=== PATIENT | female | born 1950 | race African-American/Black ===

== ENCOUNTER 2016-11-11 19:01 | Observation (INO) | payer MEDICARE, BC ==
[2016-11-11] MEDS ORDERED: SODIUM CHLORIDE 0.9% 1,000 ML IV STA (19:30)
[2016-11-11] MEDS ORDERED: KETOROLAC 30 MG/ML 1 ML VIAL IVP STA (19:33)
[2016-11-11] MEDS ORDERED: ORPHENADRINE 30 MG/ML 2 ML VIAL IVP STA (19:33)
--- NOTE | 2016-11-11 19:42 | ED ---
Back Pain HPI - General Chief Complaint: Back Pain/Injury Stated Complaint: back pain Time Seen by Provider: 11/11/16 19:16 Source: patient, RN notes reviewed, old records reviewed Limitations: no limitations - History of Present Illness Initial Comments: Patient is a 66-year-old female with chief complaint of lower back pain for approximately few hours and then the same time of the back pain occurred she did have some left arm pain and numbness. She states that her pain is in her arms sore and difficulty lifting up her arm. Patient reports that she does have a history of heart disease and family history of sudden cardiac . Patient reports that she has received a stress test approximately a year ago and states that it was clear. She states that she has no chest pain or shortness of breath this time. She reports that she is not in any pain except for when she has to move. She denies any dysuria, hematuria or abdominal pain. Patient is extremely concerned that her arteries may be clogged. - Related Data Home Medications Medication Instructions Recorded Confirmed Carvedilol [Carvedilol] 6.25 mg PO BID 01/25/14 11/11/16 Levothyroxine Sodium 75 mcg PO DAILY 01/25/14 11/11/16 [Levothyroxine Sodium] Atorvastatin [Lipitor] 10 mg PO HS 12/29/15 11/11/16 Lisinopril [Zestril] 10 mg PO HS 12/29/15 11/11/16 Calcium Carbonate/Vitamin D3 1 tab PO DAILY 08/02/16 11/11/16 [Calcium 600-Vit D3 400 Caplet] Cholecalciferol [Vitamin D3] 1,000 unit PO DAILY 08/02/16 11/11/16 Multivitamin [Multivitamins Adult 1 tab PO DAILY 08/02/16 11/11/16 Gummies] Topiramate [Topamax] 50 mg PO QAM 11/11/16 11/11/16 Allergies Allergy/AdvReac Type Severity Reaction Status Date / Time No Known Allergies Allergy Verified 11/11/16 20:03 Review of Systems ROS Statement: Those systems with pertinent positive or pertinent negative responses have been documented in the HPI. ROS Other: All systems not noted in ROS Statement are negative. Past Medical History Past Medical History: Hyperlipidemia, Hypertension, Thyroid Disorder Additional Past Medical History / Comment(s): cardiomyopathy, only has 1 kidney , hiatal hernia, plate in left wrist, degenerative disc disease, bone spurs. History of Any Multi-Drug Resistant Organisms: None Reported Past Surgical History: Appendectomy, Section Additional Past Surgical History / Comment(s): salpingo-oophorectomy 1 side, uterine sugery, left wrist surgery. Past Anesthesia/Blood Transfusion Reactions: Motion Sickness Past Psychological History: No Psychological Hx Reported Smoking Status: Former smoker Past Alcohol Use History: None Reported Past Drug Use History: None Reported - Past Family History Mother Family Medical History: Cancer General Exam - General Exam Comments Initial Comments: Patient is a 66-year-old female. She does not appear to be in any acute distress. Patient is resting comfortably on the bed. Limitations: no limitations General appearance: alert, in no apparent distress Head exam: Present: atraumatic, normocephalic, normal inspection Eye exam: Present: normal appearance, PERRL, EOMI. Absent: scleral icterus, conjunctival injection, periorbital swelling ENT exam: Present: normal exam, mucous membranes moist Neck exam: Present: normal inspection. Absent: tenderness, meningismus, lymphadenopathy Respiratory exam: Present: normal lung sounds bilaterally. Absent: respiratory distress, wheezes, rales, rhonchi, stridor Cardiovascular Exam: Present: regular rate, normal rhythm, normal heart sounds. Absent: systolic murmur, diastolic murmur, rubs, gallop, clicks GI/Abdominal exam: Present: soft, normal bowel sounds. Absent: distended, tenderness, guarding, rebound, rigid Extremities exam: Present: normal inspection, full ROM, normal capillary refill. Absent: tenderness, pedal edema, joint swelling, calf tenderness Left Shoulder Exam: Present: normal inspection, full ROM Upper Arm exam: Present: normal inspection, full ROM, tenderness (tender to palpation and patient reports left arm is weak) Elbow exam: Present: normal inspection, full ROM Forearm Wrist exam: Present: normal inspection, full ROM Hand Wrist exam: Present: normal inspection, full ROM Back exam: Present: normal inspection Neurological exam: Present: alert, oriented X3, CN II-XII intact Psychiatric exam: Present: normal affect, normal mood Skin exam: Present: warm, dry, intact, normal color. Absent: rash Course Vital Signs 11/11/16 11/11/16 19:06 20:40 Temperature 98.3 F Pulse Rate 77 78 Respiratory 17 16 Rate Blood Pressure 149/78 138/78 O2 Sat by Pulse 100 99 Oximetry Medical Decision Making - Medical Decision Making Patient is a 66-year-old [employer] chief complaint of lower back and left arm pain that occurred suddenly today. She states that the left arm is sore to move and she feels some numbness and tingling Mable. Patient was concerned that she does have a family history of sudden cardiac and she is currently taking medications for hyperlipidemia and high blood pressure. Patient's EKG was reviewed and shows no acute changes. Patient's line and labs were obtained. Patient was given a saline bolus and Norflex medication for back pain. She reports that she's containing had some mild back pain in the left arm pain is persisting. The patient denies any specific chest pain shortness of breath or nausea or vomiting. Chest x-ray and Lumbar spine x-ray are negative for any real acute process. No evidence of cardiopulmonary disease. Patient did have an elevated CK-MB of 12.1. Patient states that she does have a manager latin, Dr. Silvestre. At this time I discussed the case with Dr. Rahman. He recommended that we admit the patient for repeat cardiac enzymes and to place the patient on heparin. We will also consult cardiology. 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 - Lab Data Result diagrams: 11/11/16 19:46 11/11/16 19:46 Lab Results 11/11/16 11/11/16 11/11/16 Range/Units 19:46 19:46 19:46 WBC 8.9 (3.8-10.6) k/uL RBC 5.05 (3.80-5.40) m/uL Hgb 14.9 (11.4-16.0) gm/dL Hct 45.2 (34.0-46.0) % MCV 89.5 (80.0-100.0) fL MCH 29.5 (25.0-35.0) pg MCHC 33.0 (31.0-37.0) g/dL RDW 13.9 (11.5-15.5) % Plt Count 228 (150-450) k/uL Neutrophils % 65 % Lymphocytes % 26 % Monocytes % 5 % Eosinophils % 2 % Basophils % 0 % Neutrophils # 5.8 (1.3-7.7) k/uL Lymphocytes # 2.3 (1.0-4.8) k/uL Monocytes # 0.5 (0-1.0) k/uL Eosinophils # 0.2 (0-0.7) k/uL Basophils # 0.0 (0-0.2) k/uL PT (9.0-12.0) sec INR (<1.1) APTT (22.0-30.0) sec Sodium 143 (137-145) mmol/L Potassium 4.1 (3.5-5.1) mmol/L Chloride 107 (98-107) mmol/L Carbon Dioxide 23 (22-30) mmol/L Anion Gap 13 mmol/L BUN 19 H (7-17) mg/dL Creatinine 1.00 (0.52-1.04) mg/dL Est GFR (MDRD) Af Amer >60 (>60 ml/min/1.73 sqM) Est GFR (MDRD) Non-Af 55 (>60 ml/min/1.73 sqM) Glucose 112 H (74-99) mg/dL Calcium 10.1 (8.4-10.2) mg/dL Magnesium 2.1 (1.6-2.3) mg/dL Total Bilirubin 0.8 (0.2-1.3) mg/dL AST 32 (14-36) U/L ALT 34 (9-52) U/L Alkaline Phosphatase 61 (38-126) U/L Total Creatine Kinase (30-135) U/L CK-MB (CK-2) (0.0-2.4) ng/mL CK-MB (CK-2) Rel Index Troponin I (0.000-0.034) ng/mL Total Protein 8.0 (6.3-8.2) g/dL Albumin 4.4 (3.5-5.0) g/dL Urine Color Yellow Urine Appearance Clear (Clear) Urine pH 5.5 (5.0-8.0) Ur Specific [place] 1.023 (1.001-1.035) Urine Protein Trace H (Negative) Urine Glucose (UA) Negative (Negative) Urine Ketones Negative (Negative) Urine Blood Negative (Negative) Urine Nitrate Negative (Negative) Urine Bilirubin Negative (Negative) Urine Urobilinogen 2.0 (<2.0) mg/dL Ur Leukocyte Esterase Small H (Negative) Urine RBC 2 (0-5) /hpf Urine WBC 9 H (0-5) /hpf Ur Squamous Epith Cells 3 (0-4) /hpf Amorphous Sediment Rare H (None) /hpf Urine Mucus Rare H (None) /hpf 11/11/16 11/11/16 Range/Units 19:46 19:46 WBC (3.8-10.6) k/uL RBC (3.80-5.40) m/uL Hgb (11.4-16.0) gm/dL Hct (34.0-46.0) % MCV (80.0-100.0) fL MCH (25.0-35.0) pg MCHC (31.0-37.0) g/dL RDW (11.5-15.5) % Plt Count (150-450) k/uL Neutrophils % % Lymphocytes % % Monocytes % % Eosinophils % % Basophils % % Neutrophils # (1.3-7.7) k/uL Lymphocytes # (1.0-4.8) k/uL Monocytes # (0-1.0) k/uL Eosinophils # (0-0.7) k/uL Basophils # (0-0.2) k/uL PT 10.4 (9.0-12.0) sec INR 1.0 (<1.1) APTT 22.6 (22.0-30.0) sec Sodium (137-145) mmol/L Potassium (3.5-5.1) mmol/L Chloride (98-107) mmol/L Carbon Dioxide (22-30) mmol/L Anion Gap mmol/L BUN (7-17) mg/dL Creatinine (0.52-1.04) mg/dL Est GFR (MDRD) Af Amer (>60 ml/min/1.73 sqM) Est GFR (MDRD) Non-Af (>60 ml/min/1.73 sqM) Glucose (74-99) mg/dL Calcium (8.4-10.2) mg/dL Magnesium (1.6-2.3) mg/dL Total Bilirubin (0.2-1.3) mg/dL AST (14-36) U/L ALT (9-52) U/L Alkaline Phosphatase (38-126) U/L Total Creatine Kinase 537 H (30-135) U/L CK-MB (CK-2) 12.1 H* (0.0-2.4) ng/mL CK-MB (CK-2) Rel Index 2.3 Troponin I <0.012 (0.000-0.034) ng/mL Total Protein (6.3-8.2) g/dL Albumin (3.5-5.0) g/dL Urine Color Urine Appearance (Clear) Urine pH (5.0-8.0) Ur Specific [place] (1.001-1.035) Urine Protein (Negative) Urine Glucose (UA) (Negative) Urine Ketones (Negative) Urine Blood (Negative) Urine Nitrate (Negative) Urine Bilirubin (Negative) Urine Urobilinogen (<2.0) mg/dL Ur Leukocyte Esterase (Negative) Urine RBC (0-5) /hpf Urine WBC (0-5) /hpf Ur Squamous Epith Cells (0-4) /hpf Amorphous Sediment (None) /hpf Urine Mucus (None) /hpf 11/11/16 20:44 EKG was reviewed and shows normal sinus rhythm. There is possible left atrial enlargement. There is a borderline EKG. No evidence of ST elevation or T-wave inversion. No evidence of atrial or ventricular arrhythmias. - Radiology Data Radiology results: report reviewed Chest x-rays negative for any acute cardiopulmonary disease. 5 lumbar vertebral bodies are identified. Lumbar spine show satisfactory alignment without acute fracture dislocation. Vertebral body hands are within normal limits. Degenerative base narrowing. The overlying soft tissue appears unremarkable. Scattered assessment parenchymal changes are noted. Hyperinflation compatible with COPD. No evidence for infiltrate. No evidence of atelectasis. Heart size. Mediastinal structures are stable and grossly unremarkable. No evidence for hilar prominence. Disposition Clinical Impression: Atypical chest pain, Lower back pain Disposition: ADMITTED IP TO THIS HOSP Condition: Stable Time of Disposition: 21:38
[2016-11-11 20:17] LABS: Basophils % (A) 0 %; CH 29.9; CHCM 33.6; Eosinophils # (A) 0.2 k/uL (0-0.7); Eosinophils % (A) 2 %; HCT 45.2 % (34.0-46.0); HDW 2.55; HGB 14.9 gm/dL (11.4-16.0); Luc # (Auto) 0.14; Luc % (Auto) 2; Lymphocytes # (A) 2.3 k/uL (1.0-4.8); Lymphocytes % (A) 26 %; MCH 29.5 pg (25.0-35.0); MCV 89.5 fL (80.0-100.0); Mean Platelet Volume 7.3; Monocytes # (A) 0.5 k/uL (0-1.0); Monocytes % (A) 5 %; Neutrophils # (A) 5.8 k/uL (1.3-7.7); Neutrophils % (A) 65 %; RBC 5.05 m/uL (3.80-5.40); RDW 13.9 % (11.5-15.5); WBC 8.9 k/uL (3.8-10.6); WBC (Perox) 8.82
[2016-11-11 20:18] LABS: Amorphous Sediment,Urine Rare /hpf; Appearance,Urine Clear (Clear); Bilirubin,Urine Negative (Negative); Glucose,Urine (UA) Negative (Negative); Ketones,Urine Negative (Negative); Leukocyte Esterase,Urine Small (Negative); Mucus,Urine Rare /hpf; Nitrite,Urine Negative (Negative); PH, Urine 5.5 (5.0-8.0); Particle Count 5136; Protein,Urine Trace (Negative); RBC,Urine 2 /hpf (0-5); Specific Gravity,Urine 1.023 (1.001-1.035); Squamous Epithelial Cell,Urine 3 /hpf (0-4); UA Billing (MACRO vs. MICRO) MICRO; WBC,Urine 9 /hpf (0-5)
[2016-11-11 20:34] LABS: Partial Thromboplastin Time 22.6 sec (22.0-30.0); Prothrombin Time 10.4 sec (9.0-12.0)
[2016-11-11 20:37] LABS: Creatine Kinase 537 U/L (30-135)
[2016-11-11 20:40] LABS: ALT 34 U/L (9-52); AST 32 U/L (14-36); Alkaline Phosphatase 61 U/L (38-126); Anion Gap 13 mmol/L; Blood Urea Nitrogen 19 mg/dL (7-17); Calcium 10.1 mg/dL (8.4-10.2); Carbon Dioxide 23 mmol/L (22-30); Chloride 107 mmol/L (98-107); Glucose 112 mg/dL (74-99); Magnesium 2.1 mg/dL (1.6-2.3); Non-African American GFR(MDRD) 55 (>60 ml/min/1.73 sqM); Potassium 4.1 mmol/L (3.5-5.1); Sodium 143 mmol/L (137-145); Total Bilirubin 0.8 mg/dL (0.2-1.3)
[2016-11-11 20:48] LABS: Troponin I <0.012 ng/mL (0.000-0.034)
[2016-11-11 20:56] LABS: Creatine Kinase MB 12.1 ng/mL (0.0-2.4)
--- NOTE | 2016-11-11 21:09 | XR ---
EXAMINATION TYPE: XR lumbar spine 2 or 3V, XR chest 2V DATE OF EXAM: 11/11/2016 8:11 PM CLINICAL HISTORY: pain TECHNIQUE: Three views of the lumbar spine are submitted. COMPARISON: None. FINDINGS: There are 5 lumbar type vertebral bodies identified. The lumbar spine shows satisfactory alignment w ithout evidence of acute fracture or dislocation. Vertebral body heights are within normal limits. Degenerative disc space narrowing. The overlying soft tissue appears unremarkable. IMPRESSION: No acute fracture or dislocation is seen in the lumbar spine. ICD 10 NO FRACTURE, INITIAL EVALUATION EXAMINATION TYPE: XR lumbar spine 2 or 3V, XR chest 2V DATE OF EXAM: 11/11/2016 8:11 PM COMPARISON: NONE HISTORY: Shortness of breath TECHNIQUE: Frontal and lateral views of the chest are obtained. FINDINGS: Scattered senescent parenchymal changes noted. Hyperinflation compatible with COPD. No evidence for infiltrate. No evidence for atelectasis. Heart size is stable. Mediastinal structures are stable and grossly unremarkable. No evidence for hilar prominence. Degenerative changes dorsal spine. IMPRESSION: 1. No evidence for acute pulmonary disease.
[2016-11-11 21:45] VITALS: RESP 16
[2016-11-11] MEDS ORDERED: HEPARIN SODIUM,PORCINE 5,000 UNIT/ML 1 ML VIAL IV ONE (21:45)
[2016-11-11] MEDS ORDERED: HEPARIN SODIUM,PORCINE/D5W PMX 25,000 UNIT in DEXTROSE/WATER 1 500ML.BAG IV SCH (21:45)
[2016-11-11] MEDS ORDERED: NITROGLYCERIN SL TABS 0.4 MG TAB SUBLINGUAL PRN (21:45)
[2016-11-11] MEDS ORDERED: MORPHINE SULFATE 4 MG/ML SYRINGE IVP STA (21:56)
[2016-11-11 23:12] VITALS: BMI 23.8
[2016-11-11] MEDS ORDERED: LISINOPRIL 10 MG TAB PO STA (23:31)
[2016-11-11] MEDS ORDERED: CARVEDILOL 6.25 MG TAB PO STA (23:31)
[2016-11-11] MEDS ORDERED: ATORVASTATIN 10 MG TAB PO STA (23:32)
[2016-11-11] MEDS: MORPHINE SULFATE 2 MG/ML SYRINGE IVP PRN (23:38)
[2016-11-11] MEDS ORDERED: TOPIRAMATE 25 MG TAB PO SCH (23:40)
[2016-11-12 02:20] LABS: Creatine Kinase 412 U/L (30-135)
[2016-11-12 02:33] LABS: Troponin I <0.012 ng/mL (0.000-0.034)
[2016-11-12 02:41] LABS: Creatine Kinase MB 8.8 ng/mL (0.0-2.4)
[2016-11-12] MEDS: MORPHINE SULFATE 2 MG/ML SYRINGE IVP PRN (03:30)
[2016-11-12 03:48] LABS: Mean Platelet Volume 7.5
[2016-11-12 04:37] LABS: Cholesterol 124 mg/dL (<200); HDL Cholesterol 55 mg/dL (40-60); Triglycerides 56 mg/dL (<150)
[2016-11-12] MEDS ORDERED: LEVOTHYROXINE 75 MCG TAB PO SCH (06:30)
[2016-11-12] MEDS ORDERED: CARVEDILOL 6.25 MG TAB PO SCH (07:30)
[2016-11-12 08:25] LABS: Creatine Kinase 393 U/L (30-135)
[2016-11-12 08:37] LABS: Troponin I <0.012 ng/mL (0.000-0.034)
[2016-11-12 08:47] LABS: Creatine Kinase MB 7.5 ng/mL (0.0-2.4)
[2016-11-12] MEDS ORDERED: MULTIVITAMINS, THERA 1 EACH TAB PO SCH (09:00)
[2016-11-12] MEDS ORDERED: CHOLECALCIFEROL 1,000 UNIT TAB PO SCH (09:00)
[2016-11-12] MEDS ORDERED: CALCIUM CARB-VIT D 500MG-200UN 1 EACH TAB PO SCH (09:00)
[2016-11-12] MEDS ORDERED: TOPIRAMATE 25 MG TAB PO SCH (09:00)
[2016-11-12] MEDS ORDERED: ASPIRIN 325 MG TAB PO SCH (09:00)
[2016-11-12] MEDS ORDERED: ACETAMINOPHEN TAB 325 MG TAB PO PRN (11:29)
--- NOTE | 2016-11-12 11:41 | ECHOS ---
DATE OF SERVICE: 11/12/2016 AGE: 66Y SEX: F HT: 69" WT: 162 lbs. Protocol Talon: Others: Stage: Dur. of Exercise: 9 minutes *Heart Rate Blood Pressure *Rest: 60 Rest: 112/80 * *Max. Achieved: 145 Maximum BP: 163/85 85% PMHR: 134 100% PMHR: 154 *METS: INDICATIONS: Chest pain. MEDICATIONS: See list. Patient was exercised for a total period of 9 minutes. Peak heart rate of 146 was achieved. Maximum blood pressure of 163/85 mm of mercury was noted. Resting EKG shows normal sinus rhythm with normal NM interval and QRS duration and normal ST-T waves. No ST segment depression suggestive of ischemia is noted. The baseline echocardiographic images reveals a normal left ventricular chamber size with normal left ventricular systolic function. In the immediate postexercise period, normal increase in the wall thickness and contractility is noted. FINAL IMPRESSION: This stress echocardiographic study is negative for stress-induced ischemia. EKG portion of the stress test is not suggestive of ischemia. Patient's exercise tolerance is normal. The patient did not complain of any anginal pain during the test.
--- NOTE | 2016-11-12 11:45 | CONS ---
DATE OF CONSULTATION: Heike Brumfield is a 66-year-old female who follows on a regular basis with Dr. Cox according to her, has a history of mild nonischemic cardiomyopathy most recent echocardiogram done in the fall showed an ejection fraction of 50%. According to her, who presented with initially discomfort in the right side of the back and subsequently started to complain of discomfort in the left arm. She has soreness in the arm. She has no associated dyspnea. No chest pain. No dizziness. No palpitation. No syncope. No PND, orthopnea, or peripheral edema. She had a stress test over a few years ago and that was unremarkable according to her. She denies any prior history of obstructive coronary artery disease. Her coronary risk factors are remarkable for history of hypertension and hyperlipidemia. She is a nonsmoker. Her medications: 1. Coreg 6.25 mg twice a day. 2. Lipitor 10 mg daily. 3. Lisinopril 10 mg daily. 4. Topamax 50 mg daily. She has a history of migraine. REVIEW OF SYSTEMS: RESPIRATORY SYSTEM: She has no history of documented asthma, emphysema, bronchitis. GI system: No recent GI bleeding. No peptic ulcer disease. system: No dysuria or hematuria. Nervous system: She has a history of migraine. PHYSICAL EXAMINATION: She is a 66-year-old female, alert, oriented, in no apparent distress. Blood pressure 106/50 with a heart rate in the 60s. HEAD: Normocephalic. EYES: Sclerae anicteric. NECK: Good carotid upstroke. No bruit. No jugular venous distention. LUNGS: Clear to auscultation. HEART: Regular rate and rhythm. S1, S2, no S3, no S4, no murmur or rub. Left arm with mild left arm tenderness reproducible. ABDOMEN: Soft, nontender, positive bowel sounds. No organomegaly. EXTREMITIES: No edema. Intact distal pulses. Lab data revealed troponin less than 0.012. BUN and creatinine 19 and 1.0, potassium of 4.1. Cholesterol 124, LDL of 58. Hemoglobin of 14.9. Chest x-ray shows no acute changes. EKG revealed a sinus mechanism, normal axis and intervals. Left ventricular hypertrophy by voltage criteria with minor nonspecific ST-T wave changes inferiorly. IMPRESSION: 1. Left arm discomfort, atypical for ischemic heart disease; appears to be musculoskeletal in etiology. Patient returned from traveling trip recently and had luggage and it is possible that she pulled a muscle. 2. Prior history of nonischemic cardiomyopathy according to the patient. I do not have the details of that. 3. History of hypertension. 4. Hyperlipidemia. 5. History of migraine. RECOMMENDATION: I have recommended to stop the heparin because of her coronary risk factors and a family history of cardiac sudden . I would recommend to proceed with a stress echocardiogram. If there is no evidence of inducible ischemia, then no further cardiac work-up will be needed. Thank you for this consult. We will follow with you.
[2016-11-12 11:52] VITALS: BP 106/59; PULSE 64; TEMP 97.6
--- NOTE | 2016-11-12 20:42 | HP ---
DATE OF ADMISSION: 11/11/2016 PRESENTING COMPLAINT: Back pain and arm spasm. HISTORY OF PRESENTING COMPLAINT: This is a very pleasant 66 -year-old patient of Dr. Cadena whose chronic stable medical conditions include hyperlipidemia, hypothyroid, history of cardiomyopathy in the past that has actually improved, cause is not clear she says. Patient has a solitary kidney, hiatal hernia. Does get migraines. The patient just returned from [place] and had boxes that weighed about 48 pounds. Yesterday when she was sitting she tried to move and every time she would move, she would feel the spasm in the back along the spine. It happened two or three times and subsequently patient developed a spasm in the left arm and pain. She had no precordial pain. No shortness of breath, just the pain in the left arm. She was concerned about the heart, given her history and decided to come in. The patient otherwise is pretty active. REVIEW OF SYSTEMS: CONSTITUTIONAL: None. HEENT: None. RESPIRATORY: None. CARDIOVASCULAR: No precordial pain. GASTROINTESTINAL: Heartburn. GENITOURINARY: None. MUSCULOSKELETAL: The patient does get some chronic back pain. HEMATOLOGIC: None. LYMPHATICS: None. PSYCHIATRY: None. NEUROLOGICAL: As above. Past history of hyperlipidemia, hypothyroid, cardiomyopathy, solitary kidney, hiatal hernia, migraines. PAST SURGICAL HISTORY: Appendectomy, , salpingo-oophorectomy in the left side, left wrist surgery, x2. SOCIAL HISTORY: No smoking. No alcohol. The patient . Retired from [employer]. Does not smoke or drink alcohol. FAMILY HISTORY: Leukemia, cancer, cardiomyopathy. HOME MEDICATIONS: 1. Vitamin D3 1000 units p.o. daily. 2. Coreg 6.25 mg p.o. b.i.d. 3. Calcium 600 vitamin D3 1 tablet p.o. daily. 4. Lipitor 10 mg p.o. q.h.s. 5. Zestril 10 mg p.o. q.h.s. 6. Levothyroxine 75 mcg p.o. daily. 7. Multivitamin 1 tablet p.o. b.i.d. 8. Topamax 50 mg p.o. q.h.s. ALLERGIES: None. On examination, temperature 98.3, pulse 77, respirations 17, blood pressure 149/78, pulse 100% on room air. GENERAL APPEARANCE: Average build, lying in bed, comfortable. EYES: Pupils equal. Conjunctivae normal. HEENT: External appearance of nose and ears normal. Oral cavity normal. NECK: JVD not raised. Mass not palpable. RESPIRATORY: Effort normal. LUNGS: Have fair air entry. CARDIOVASCULAR: First and second sounds normal. No edema. ABDOMEN: Soft, nontender. Liver and spleen not palpable. LYMPHATIC: No lymph nodes palpable in neck or axillae. PSYCHIATRY: Alert and oriented x3. Mood and affect normal. NEUROLOGICAL: Pupils equal. Cranial nerves grossly intact. Power and sensation grossly intact. INVESTIGATIONS: White count 8.9, hemoglobin 14.9. Potassium 4.1, BUN 19, creatinine 1.0. Troponin less than 0.012, LDL 58. EKG normal sinus rhythm. Chest x-ray nonspecific. Lumbar spine showed degenerative disc space narrowing. ASSESSMENT: 1. This is a patient who has been lifting heavy bags up to 48 pounds in the following day and developed what appears to be back spasm maybe radiculopathy now going down the left arm. 2. Given prior history of cardiomyopathy, cardiac cause to be ruled out, but this seems to be extremely unlikely. 3. Hyperlipidemia. 4. Hypothyroidism. 5. Solitary kidney. 6. Hiatal hernia. PLAN: Cardiology was consulted. Home medications are resumed. Serial cardiac enzymes were done. Seen by cardiology who also did go ahead and ordered a stress test.
[2016-11-12] MEDS ORDERED: ATORVASTATIN 10 MG TAB PO SCH (21:00)
[2016-11-12] MEDS ORDERED: LISINOPRIL 10 MG TAB PO SCH (21:00)
--- NOTE | 2016-11-13 10:16 | DS ---
DATE OF ADMISSION: 11/11/2016 DATE OF DISCHARGE: 11/12/2016 FINAL DIAGNOSES: 1. Acute back spasm, radiculopathy from physical exertion. 2. Hyperlipidemia. 3. Hypothyroidism. 4. Solitary kidney. 5. Hiatal hernia. HOSPITAL COURSE: This patient after lifting some heavy bags while traveling, next day developed some back spasm, radiculopathy, could not lift her arm. Because of history of cardiomyopathy, patient did undergo a stress test that was negative. Lumbar spine did show arthritis and narrowing of the disc space. Patient was given baclofen. Care was discussed. On exam, lungs are clear. CARDIOVASCULAR: First and second seconds are normal. CONSULTATION: Dr. Ricketts from Cardiology. DISCHARGE MEDICATIONS: 1. Coreg 6.25 p.o. b.i.d. 2. Levothyroxine 75 mcg p.o. daily. 3. Lipitor 10 mg p.o. q.h.s. 4. Zestril 10 mg p.o. q.h.s. 5. Vitamin D3 one tablet daily. 6. Multivitamin 1 tablet p.o. b.i.d. 7. Topamax 50 mg p.o. q.h.s. 8. Baclofen 5 mg q.6 p.r.n. followed. Follow up with Dr. Cadena in 3 days.
== END 2016-11-12 14:46 | disposition home or self-care (01) ==
LOC: EC 19:01 → 3OBS 22:21
PROVIDERS: ADMIT Hospitalist; ATTEND Hospitalist
DX: M54.10 Radiculopathy, site unspecified (principal); M62.830 Muscle spasm of back; E78.5 Hyperlipidemia, unspecified; E03.9 Hypothyroidism, unspecified; Q60.0 Renal agenesis, unilateral; K44.9 Diaphragmatic hernia without obstruction or gangrene; I42.9 Cardiomyopathy, unspecified; R74.8 Abnormal levels of other serum enzymes; M46.96 Unspecified inflammatory spondylopathy, lumbar region; G43.909 Migraine, unspecified, not intractable, without status migrainosus; I10 Essential (primary) hypertension; Z82.41 Family history of sudden cardiac death; Z87.891 Personal history of nicotine dependence; Z79.899 Other long term (current) drug therapy; X50.0XXA Overexertion from strenuous movement or load, initial encounter; Y93.89 Activity, other specified; Z82.49 Family history of ischemic heart disease and other diseases of the circulatory system
CPT/HCPCS: 96365 ×2; 96376 ×2; 96361 ×2; 96375 ×4; 99285 ×2; 36415; 93005; 93017; 80061; 80053; 82550 ×2; 82553 ×2; 83735; 84484 ×2; 85025; 85049; 85610; 85730 ×2; 81001; 71020; 72100; G0378 ×2; C8928; J2270 ×3; J1644 ×2; J2360; J1885; Q9957; 93350; 96366

== ENCOUNTER → 2018-03-28 | Outpatient (CLI) | payer MEDICARE, BC ==
--- NOTE | 2018-03-31 08:44 | MM ---
Reason for exam: additional evaluation requested from prior study. Last mammogram was performed 1 year and 10 months ago. History: Patient is postmenopausal and has history of high-risk lesion on a previous biopsy at age 65. Family history of breast cancer in paternal aunt at age 60 and breast cancer in maternal aunt at age 60. High risk excisional biopsy of the right breast, 2017. Took hormonal contraceptives for 16 years beginning at age 19. Took estrogen for 1 year. Physical Findings: Nurse did not find any significant physical abnormalities on exam. MG 3D Diag Mammo W/Cad JOSÉ MIGUEL Bilateral CC and MLO view(s) were taken. Prior study comparison: June 11, 2016, bilateral MG 3d screening mammo w/cad. June 09, 2015, bilateral MG screening mammo w CAD. There are scattered fibroglandular densities. No suspicious abnormality. Post biopsy change on the right breast. These results were verbally communicated with the patient and result sheet given to the patient on 03/28/18. ASSESSMENT: Benign, BI-RAD 2 RECOMMENDATION: Breast MRI of the right breast. (MRI could be considered prior to excision for high risk LCIS) Surgical consultation of the right breast. Localization and excision of the right breast. (for high risk lesion) Called Dr. Kearns with mammographic findings and has scheduled an appointment for the patient for 04/23/18 at 2:[address] Spring. PRELIMINARY REPORT CALLED AND FAXED TO DR. SPRING ON 03/31/18.
== END | disposition home or self-care (01) ==
LOC: RADMAMWWP 12:52
PROVIDERS: ATTEND Surgery
DX: D05.01 Lobular carcinoma in situ of right breast (principal)
CPT/HCPCS: 77066; G0279; 77062